=== PATIENT | female | born 1960 | race Two or more races ===

== ENCOUNTER 2019-11-08 06:05 | Day surgery (SDC) | payer OTHER | END 2019-11-08 09:35 | disposition home or self-care (01) | LOC: AMB-ENDOS 06:05 | PROVIDERS: ATTEND Surgery | DX: K62.89 Other specified diseases of anus and rectum (principal); K64.2 Third degree hemorrhoids; Z20.828 Contact with and (suspected) exposure to other viral communicable diseases ==